=== PATIENT | male | born 1955 | race Caucasian/White ===

== ENCOUNTER 2017-09-08 07:52 | Day surgery (SDC) | payer BC ==
[2017-09-02 13:23] VITALS: BMI 27.0
[2017-09-08] MEDS ORDERED: PROPOFOL 20 ML ONE ×2 (08:06)
[2017-09-08] MEDS ORDERED: LIDOCAINE HCL/PF 2% SDV 5ML VIAL ONE (08:06)
[2017-09-08 09:35] VITALS: TEMP 98
[2017-09-08 11:05] VITALS: BP 119/86; PULSE 62
== END 2017-09-08 10:15 | disposition home or self-care (01) ==
LOC: FASU-ENDO 07:52
PROVIDERS: ATTEND Internal Medicine Gastroenterology
PROC: 0DJD8ZZ Inspection of Lower Intestinal Tract, Via Natural or Artificial Opening Endoscopic (ICD-10-PCS; principal; 2017-09-08 09:10)
DX: Z86.010 Personal history of colon polyps (principal); K57.30 Diverticulosis of large intestine without perforation or abscess without bleeding

== ENCOUNTER 2018-07-26 15:12 | Emergency (ER) | payer BC ==
[2018-07-26 15:28] VITALS: BP 152/82; PULSE 71; TEMP 98.6; BMI 27.0
[2018-07-26] MEDS ORDERED: SODIUM CHLORIDE 0.9% 1000 ML INFUS.BAG IV ONE (15:39)
--- NOTE | 2018-07-26 15:51 | PDOC ---
Documentation entered by Johnny Roe SCRIBE, acting as scribe for Venessa Vasquez MD. Venessa Vasquez MD: This documentation has been prepared by the Bhupinder rawls Daniel, SCRIBE, under my direction and personally reviewed by me in its entirety. I confirm that the documentation accurately reflects all work, treatment, procedures, and medical decision making performed by me. History of Present Illness - General Chief Complaint: Pain Stated Complaint: ABD PAIN Time Seen by Provider: 07/26/18 15:15 History Source: Patient Exam Limitations: No Limitations - History of Present Illness Initial Comments: 07/26/18 15:45 The patient is a 62 year old male with no past medical history here today for evaluation of abdominal pain. The patient reports that he has been having right sided abdominal pain for the past 4 days. He had a similar pain a few weeks ago which resolved on its own. He notes that his pain is alleviated when lying on his right side and worse when lying on his left side. Patient denies headache, lightheadedness. Denies fever, chills. Denies chest pain, shortness of breath. Denies nausea, vomiting, diarrhea, abdominal pain. Allergies: Surgical history: none PCP: Jayce Blanc Past History - Past Medical History Allergies/Adverse Reactions: Allergies Allergy/AdvReac Type Severity Reaction Status Date / Time No Known Allergies Allergy Verified 09/02/17 13:18 Home Medications: Ambulatory Orders Atorvastatin Calcium [Lipitor] 10 mg PO DAILY 03/21/12 Cholecalciferol (Vitamin D3) [Vitamin D3] 1,000 unit PO DAILY 09/02/17 Anemia: No Asthma: No Cancer: No Cardiac Disorders: No CVA: No COPD: No CHF: No Dementia: No Diabetes: No GI Disorders: No Disorders: No HTN: No Hypercholesterolemia: Yes Liver Disease: No Seizures: No Thyroid Disease: No - Suicide/Smoking/Psychosocial Hx Smoking History: Former smoker Have you smoked in the past 12 months: No If you are a former smoker, when did you quit?: OVER 30 YRS. AGO Hx Alcohol Use: Yes (COUPLE TIMES PER WEEK) Drug/Substance Use Hx: No Substance Use Type: Alcohol Hx Substance Use Treatment: No Review of Systems - Review of Systems Able to Perform ROS?: Yes Comments:: 07/26/18 15:45 GENERAL/CONSTITUTIONAL: No fever or chills. No weakness. HEAD, EYES, EARS, NOSE AND THROAT: No change in vision. No ear pain or discharge. No sore throat. CARDIOVASCULAR: No chest pain or shortness of breath. RESPIRATORY: No cough, wheezing, or hemoptysis. GASTROINTESTINAL: +right sided abdominal pain. No nausea, vomiting, diarrhea or constipation. GENITOURINARY: No dysuria, frequency, or change in urination. MUSCULOSKELETAL: No joint or muscle swelling or pain. No neck or back pain. SKIN: No rash NEUROLOGIC: No headache, vertigo, loss of consciousness, or change in strength/ sensation. ENDOCRINE: No increased thirst. No abnormal weight change. HEMATOLOGIC/LYMPHATIC: No anemia, easy bleeding, or history of blood clots. ALLERGIC/IMMUNOLOGIC: No hives or skin allergy. *Physical Exam - Vital Signs Last Vital Signs Temp Pulse Resp BP Pulse Ox 98.6 F 71 20 152/82 98 07/26/18 15:13 07/26/18 15:13 07/26/18 15:13 07/26/18 15:13 07/26/18 15:13 - Physical Exam Comments: 07/26/18 15:45 GENERAL: Awake, alert, and fully oriented, in no acute distress HEAD: No signs of trauma EYES: PERRLA, EOMI, sclera anicteric, conjunctiva clear ENT: Auricles normal inspection, hearing grossly normal, nares patent. Moist mucosa NECK: Normal ROM, supple, no lymphadenopathy, JVD, or masses LUNGS: Breath sounds equal, clear to auscultation bilaterally. No wheezes, and no crackles HEART: Regular rate and rhythm, normal S1 and S2, no murmurs, rubs or gallops ABDOMEN: +right mid quadrant abdominal pain tenderness to palpation. Negative Peters's sign. Soft, normoactive bowel sounds. No guarding, no rebound. No masses EXTREMITIES: Normal range of motion, no edema. No erythema or tenderness. DP/PT pulses 2+ and symmetric. Warm and well perfused. NEUROLOGICAL: Moves all extremities. Normal speech, normal gait SKIN: Warm, Dry, normal turgor, no rashes or lesions noted. ED Treatment Course - RADIOLOGY Radiology Studies Ordered: Category Date Time Status ABDOMEN & PELVIS CT WITH CONTR [CT] Stat CT Scan 07/26/18 15:38 Ordered Medical Decision Making - Medical Decision Making 07/26/18 15:48 focused screening ed ultrasound performed RUQ. no stones visualized. no wall thickening. negative peters's sign impression: normal gallbladder ct a/p ordered . pt will leave [facility] because has to go home to walk dogs. encouraged to return for worsenign pain vomiting or any concers. labs ordered not drawn prior to pt decideing to leave. 07/26/18 15:57 d/w pt pcp, pt states he will return later this evening for the test. *DC/Admit/Observation/Transfer Diagnosis at time of Disposition: Abdominal pain - Discharge Dispostion Disposition: AGAINST MEDICAL ADVICE Condition at time of disposition: Stable - Referrals - Patient Instructions Printed Discharge Instructions: Acute Abdominal Pain Additional Instructions: understand you are leaving against medical advice. you should return for worsening pain vomiting or any concerns. you have abdominal pain that could be from an infection in your kidney, kidney stones or appendicitis. understand you are refusing these test. - Post Discharge Activity
== END 2018-07-26 15:56 | disposition left against medical advice (07) ==
LOC: FER 15:12
DX: R10.9 Unspecified abdominal pain (principal); E78.00 Pure hypercholesterolemia, unspecified
CPT/HCPCS: 74177-TC; 99282-25

== ENCOUNTER 2018-07-26 16:37 | Emergency (ER) | payer BC ==
[2018-07-26 16:58] VITALS: BP 152/91; PULSE 82; TEMP 98.9; BMI 27.0
[2018-07-26] MEDS ORDERED: SODIUM CHLORIDE 0.9% 1000 ML INFUS.BAG IV ONE (17:05)
[2018-07-26 17:20] LABS: BASO % 0.6 % (0-2.0); EOS % 2.9 % (0-4.5); HEMOGLOBIN 15.5 GM/dl (11.7-16.9); MCH 31.7 pg (25.7-33.7); MCHC 33.7 g/dl (32.0-35.9); MEAN CELL VOLUME 94.1 fl (80-96); MONO % 9.8 % (3.8-10.2); NEUT % 68.7 % (42.8-82.8); PLATELET COUNT 210 K/MM3 (134-434); RBC 4.89 M/mm3 (4.00-5.60); RDW 12.4 % (11.9-15.9); WHITE BLOOD COUNT 10.2 K/mm3 (4.0-10.8)
[2018-07-26 17:36] LABS: ACTIVATED PTT 29.2 SECONDS (25.2-36.5)
[2018-07-26 17:39] LABS: ALBUMIN 4.5 g/dl (3.4-5.0); BILIRUBIN,TOTAL 0.9 mg/dl (0.2-1); CALCIUM 9.3 mg/dl (8.5-10); CREATININE 0.9 mg/dl (0.55-1.3); POTASSIUM 3.8 mmol/L (3.5-5.1); TOT PROT 7.7 g/dl (6.4-8.2)
[2018-07-26 17:41] LABS: INR 1.11 (0.82-1.09); PROTHROMBIN TIME (PATIENT) 12.4 SEC (10.2-13.0)
--- NOTE | 2018-07-26 18:21 | PDOC ---
Documentation entered by Johnny Roe SCRIBE, acting as scribe for Venessa Vasquez MD. Venessa Vasquez MD: This documentation has been prepared by the Bhupinder rawls Daniel, SCRIBE, under my direction and personally reviewed by me in its entirety. I confirm that the documentation accurately reflects all work, treatment, procedures, and medical decision making performed by me. History of Present Illness - General History Source: Patient Exam Limitations: No Limitations - History of Present Illness Initial Comments: 07/26/18 16:47 The patient is a 62 year old male with no past medical history here today for evaluation of abdominal pain. The patient reports that he has been having right sided abdominal pain for the past 4 days. He had a similar pain a few weeks ago which resolved on its own. He notes that his pain is alleviated when lying on his right side and worse when lying on his left side. Patient left [facility] for personal reasons but has returned and is willing to stay for full evaluation and imaging. Patient denies headache, lightheadedness. Denies fever, chills. Denies chest pain, shortness of breath. Denies nausea, vomiting, diarrhea, abdominal pain. Allergies: Surgical history: none PCP: Jayce Blanc <Venessa Vasquez - Last Filed: 07/26/18 18:53> <Rocio Merlos I - Last Filed: 07/26/18 21:27> - General Chief Complaint: Pain Stated Complaint: RIGHT LOWER QUADRANT PAIN FOR 4 DAYS Past History - Past Medical History Anemia: No Asthma: No Cancer: No Cardiac Disorders: No CVA: No COPD: No CHF: No Dementia: No Diabetes: No GI Disorders: No Disorders: No HTN: No Hypercholesterolemia: Yes Liver Disease: No Seizures: No Thyroid Disease: No - Suicide/Smoking/Psychosocial Hx Smoking History: Former smoker Have you smoked in the past 12 months: No If you are a former smoker, when did you quit?: OVER 30 YRS. AGO Hx Alcohol Use: Yes (COUPLE TIMES PER WEEK) Drug/Substance Use Hx: No Substance Use Type: Alcohol Hx Substance Use Treatment: No <Venessa Vasquez - Last Filed: 07/26/18 18:53> <Rocio Merlos I - Last Filed: 07/26/18 21:27> - Past Medical History Allergies/Adverse Reactions: Allergies Allergy/AdvReac Type Severity Reaction Status Date / Time No Known Allergies Allergy Verified 07/26/18 16:44 Home Medications: Ambulatory Orders Atorvastatin Calcium [Lipitor] 10 mg PO DAILY 03/21/12 Review of Systems - Review of Systems Able to Perform ROS?: Yes Comments:: 07/26/18 16:47 GENERAL/CONSTITUTIONAL: No fever or chills. No weakness. HEAD, EYES, EARS, NOSE AND THROAT: No change in vision. No ear pain or discharge. No sore throat. CARDIOVASCULAR: No chest pain or shortness of breath. RESPIRATORY: No cough, wheezing, or hemoptysis. GASTROINTESTINAL: +right sided abdominal pain. No nausea, vomiting, diarrhea or constipation. GENITOURINARY: No dysuria, frequency, or change in urination. MUSCULOSKELETAL: No joint or muscle swelling or pain. No neck or back pain. SKIN: No rash NEUROLOGIC: No headache, vertigo, loss of consciousness, or change in strength/ sensation. ENDOCRINE: No increased thirst. No abnormal weight change. HEMATOLOGIC/LYMPHATIC: No anemia, easy bleeding, or history of blood clots. ALLERGIC/IMMUNOLOGIC: No hives or skin allergy. <Venessa Vasquez - Last Filed: 07/26/18 18:53> *Physical Exam - Vital Signs Last Vital Signs Temp Pulse Resp BP Pulse Ox 98.9 F 82 16 152/91 100 07/26/18 16:38 07/26/18 16:38 07/26/18 16:38 07/26/18 16:38 07/26/18 16:38 - Physical Exam Comments: 07/26/18 16:47 GENERAL: Awake, alert, and fully oriented, in no acute distress HEAD: No signs of trauma EYES: PERRLA, EOMI, sclera anicteric, conjunctiva clear ENT: Auricles normal inspection, hearing grossly normal, nares patent. Moist mucosa NECK: Normal ROM, supple, no lymphadenopathy, JVD, or masses LUNGS: Breath sounds equal, clear to auscultation bilaterally. No wheezes, and no crackles HEART: Regular rate and rhythm, normal S1 and S2, no murmurs, rubs or gallops ABDOMEN: +right mid quadrant abdominal pain tenderness to palpation. Negative Peters's sign. Soft, normoactive bowel sounds. No guarding, no rebound. No masses EXTREMITIES: Normal range of motion, no edema. No erythema or tenderness. DP/PT pulses 2+ and symmetric. Warm and well perfused. NEUROLOGICAL: Moves all extremities. Normal speech, normal gait SKIN: Warm, Dry, normal turgor, no rashes or lesions noted. <Venessa Vasquez - Last Filed: 07/26/18 18:53> - Vital Signs Last Vital Signs Temp Pulse Resp BP Pulse Ox 98.9 F 82 16 152/91 100 07/26/18 16:38 07/26/18 16:38 07/26/18 16:38 07/26/18 16:38 07/26/18 16:38 <Rocio Merlos I - Last Filed: 07/26/18 21:27> ED Treatment Course - LABORATORY CBC & Chemistry Diagram: 07/26/18 17:10 07/26/18 17:10 - ADDITIONAL ORDERS Additional order review: Laboratory Results 07/26/18 07/26/18 07/26/18 17:11 17:10 17:10 PT with INR 12.4 INR 1.11 PTT (Actin FS) 29.2 Sodium 141 Potassium 3.8 Chloride 105 Carbon Dioxide 26 Anion Gap 10 BUN 15 Creatinine 0.9 Est GFR (CKD-EPI)AfAm 107.22 Est GFR (CKD-EPI)NonAf 92.51 Random Glucose 94 Calcium 9.3 Total Bilirubin 0.9 AST 44 H ALT 73 H Alkaline Phosphatase 73 Total Protein 7.7 Albumin 4.5 Urine Color Yellow Urine Appearance Clear Urine pH 6.5 Urine Protein Negative Urine Glucose (UA) Negative Urine Ketones Negative Urine Blood Trace-intact Urine Nitrite Negative Urine Bilirubin Negative Urine Urobilinogen 0.2 Ur Leukocyte Esterase 1+ 07/26/18 17:10 RBC 4.89 MCV 94.1 MCHC 33.7 RDW 12.4 MPV 10.0 Neutrophils % 68.7 Lymphocytes % 18.0 Monocytes % 9.8 Eosinophils % 2.9 Basophils % 0.6 - RADIOLOGY Radiology Studies Ordered: Category Date Time Status ABDOMEN US -LIMITED [US] Stat Ultrasound 07/26/18 18:11 Ordered - Medications Given in the ED: ED Medications Discontinued Medications Generic Name Dose Route Start Last Admin Trade Name Freq PRN Reason Stop Dose Admin Sodium Chloride 1,000 ml 07/26/18 17:05 07/26/18 17:26 Normal Saline - IV 07/26/18 17:06 1,000 ml ONCE ONE Administration <Venessa Vasquez - Last Filed: 07/26/18 18:53> - LABORATORY CBC & Chemistry Diagram: 07/26/18 17:10 07/26/18 17:10 - ADDITIONAL ORDERS Additional order review: Laboratory Results 07/26/18 07/26/18 07/26/18 17:11 17:10 17:10 PT with INR 12.4 INR 1.11 PTT (Actin FS) 29.2 Sodium 141 Potassium 3.8 Chloride 105 Carbon Dioxide 26 Anion Gap 10 BUN 15 Creatinine 0.9 Est GFR (CKD-EPI)AfAm 107.22 Est GFR (CKD-EPI)NonAf 92.51 Random Glucose 94 Calcium 9.3 Total Bilirubin 0.9 AST 44 H ALT 73 H Alkaline Phosphatase 73 Total Protein 7.7 Albumin 4.5 Lipase 232 Urine Color Yellow Urine Appearance Clear Urine pH 6.5 Urine Protein Negative Urine Glucose (UA) Negative Urine Ketones Negative Urine Blood Trace-intact Urine Nitrite Negative Urine Bilirubin Negative Urine Urobilinogen 0.2 Ur Leukocyte Esterase 1+ 07/26/18 17:10 RBC 4.89 MCV 94.1 MCHC 33.7 RDW 12.4 MPV 10.0 Neutrophils % 68.7 Lymphocytes % 18.0 Monocytes % 9.8 Eosinophils % 2.9 Basophils % 0.6 - Medications Given in the ED: ED Medications Discontinued Medications Generic Name Dose Route Start Last Admin Trade Name Freq PRN Reason Stop Dose Admin Sodium Chloride 1,000 ml 07/26/18 17:05 07/26/18 17:26 Normal Saline - IV 07/26/18 17:06 1,000 ml ONCE ONE Administration <Rocio Merlos I - Last Filed: 07/26/18 21:27> Medical Decision Making - Medical Decision Making 07/26/18 18:20 differential pancreatitis, renal colic, cholelithiasis, cholecystitis, appendicitis. uti pyelo. plan ct a/p . pt lft mild elevation will obtain us liver, ruq. 07/26/18 18:53 [facility] and us ruq. pt labs only noted for mild lft elevation. ua noted for small blood. <Venessa Vasquez - Last Filed: 07/26/18 18:53> *DC/Admit/Observation/Transfer <DenzelVenessa barnett - Last Filed: 07/26/18 18:53> <Rocio Merlos I - Last Filed: 07/26/18 21:27> Diagnosis at time of Disposition: Abdominal pain - Discharge Dispostion Disposition: HOME Condition at time of disposition: Stable - Patient Instructions Additional Instructions: You can take ibuprofen 600 mg 3 times a day with food don't take on an empty stomach take as needed. Return to the emergency department immediately with ANY new, persistent or worsening symptoms. Continue any medications as previously prescribed by your physician. You should follow up with your primary doctor as soon as possible regarding today's emergency department visit. . Please make sure your doctor reviews the results of your emergency evaluation. Thank you for coming to the Emergency Department today for your care. It was a pleasure to see you today. Please note that your evaluation is INCOMPLETE until you follow-up with your doctor.
--- NOTE | 2018-07-26 19:16 | PDOC ---
*Physical Exam - Vital Signs Last Vital Signs Temp Pulse Resp BP Pulse Ox 98.9 F 82 16 152/91 100 07/26/18 16:38 07/26/18 16:38 07/26/18 16:38 07/26/18 16:38 07/26/18 16:38 07/26/18 20:38 Patient's ultrasound was negative for any acute pathology. Patient's CAT scan was negative for any acute pathology as well specifically the appendix was visualized and normal. Patient was recommended to take some anti-inflammatories follow-up with his doctor. The only abnormality was a mild elevation of liver enzymes. Patient was given copies of his blood work and told to follow-up with his doctor which he said he will do ED Treatment Course - LABORATORY CBC & Chemistry Diagram: 07/26/18 17:10 07/26/18 17:10 - ADDITIONAL ORDERS Additional order review: Laboratory Results 07/26/18 07/26/18 07/26/18 17:11 17:10 17:10 PT with INR 12.4 INR 1.11 PTT (Actin FS) 29.2 Sodium 141 Potassium 3.8 Chloride 105 Carbon Dioxide 26 Anion Gap 10 BUN 15 Creatinine 0.9 Est GFR (CKD-EPI)AfAm 107.22 Est GFR (CKD-EPI)NonAf 92.51 Random Glucose 94 Calcium 9.3 Total Bilirubin 0.9 AST 44 H ALT 73 H Alkaline Phosphatase 73 Total Protein 7.7 Albumin 4.5 Urine Color Yellow Urine Appearance Clear Urine pH 6.5 Urine Protein Negative Urine Glucose (UA) Negative Urine Ketones Negative Urine Blood Trace-intact Urine Nitrite Negative Urine Bilirubin Negative Urine Urobilinogen 0.2 Ur Leukocyte Esterase 1+ 07/26/18 17:10 RBC 4.89 MCV 94.1 MCHC 33.7 RDW 12.4 MPV 10.0 Neutrophils % 68.7 Lymphocytes % 18.0 Monocytes % 9.8 Eosinophils % 2.9 Basophils % 0.6 - Medications Given in the ED: ED Medications Discontinued Medications Generic Name Dose Route Start Last Admin Trade Name Freq PRN Reason Stop Dose Admin Sodium Chloride 1,000 ml 07/26/18 17:05 07/26/18 17:26 Normal Saline - IV 07/26/18 17:06 1,000 ml ONCE ONE Administration Progress Note - Progress Note Progress Note: Care of this patient was transferred to [place] from Dr. Delgado at 1900 hrs. This is a 62-year-old male who was here earlier with complaint of right-sided abdominal pain. Patient left prior to CAT scan and then returned and is now completing the workup for his abdominal pain. Patient's workup is still pending including CAT scan and ultrasound and labs. *DC/Admit/Observation/Transfer Diagnosis at time of Disposition: Abdominal pain - Discharge Dispostion Disposition: HOME Condition at time of disposition: Stable Decision to Admit order: No - Referrals - Patient Instructions Additional Instructions: You can take ibuprofen 600 mg 3 times a day with food don't take on an empty stomach take as needed. Return to the emergency department immediately with ANY new, persistent or worsening symptoms. Continue any medications as previously prescribed by your physician. You should follow up with your primary doctor as soon as possible regarding today's emergency department visit. . Please make sure your doctor reviews the results of your emergency evaluation. Thank you for coming to the Emergency Department today for your care. It was a pleasure to see you today. Please note that your evaluation is INCOMPLETE until you follow-up with your doctor. - Post Discharge Activity
== END 2018-07-26 20:44 | disposition home or self-care (01) ==
LOC: FER 16:37
PROC: 3E0337Z Introduction of Electrolytic and Water Balance Substance into Peripheral Vein, Percutaneous Approach (ICD-10-PCS; principal; 2018-07-26)
DX: R10.9 Unspecified abdominal pain (principal); E78.00 Pure hypercholesterolemia, unspecified
CPT/HCPCS: 36415; 76705-TC; 80053; 81003; 81015; 83690; 85025; 85610; 85730; 99284-25; J7030